=== PATIENT | male | born 1990 | race Caucasian/White ===

== ENCOUNTER 2019-02-23 12:10 | Emergency (ER) | payer OTHER ==
--- NOTE | 2019-02-23 13:12 | XRAY Report ---
Reason: Chest pain Procedure Date: 02/23/2019 Accession Number: [id number] / [id number] Procedure: XR - Chest 1 View X-Ray CPT Code: 06747 Final Report FULL RESULT: EXAM: CHEST RADIOGRAPHY EXAM DATE: 02/23/2019 12:49 PM. CLINICAL HISTORY: Chest pain. COMPARISON: None. TECHNIQUE: 1 view. FINDINGS: Lungs/Pleura: No focal opacities evident. No pleural effusion. No pneumothorax. Mediastinum: Within exam limitations, the cardiomediastinal contour is normal. Other: None. IMPRESSION: Normal single view chest. RADIA
[2019-02-23 13:16] LABS: BASOPHILS % (AUTO) 0.3 %; EOSINOPHILS % (AUTO) 0.3 %; HGB - HEMOGLOBIN 15.1 g/dL (14.0-18.0); LYMPHOCYTES # (AUTO) 0.4 10^3/uL (1.5-3.5); LYMPHOCYTES % (AUTO) 5.5 %; MEAN CORPUSCULAR HEMOGLOBIN 30.3 pg (27.0-31.0); MEAN CORPUSCULAR HGB CONC 33.5 g/dL (32.0-36.0); MEAN CORPUSCULAR VOLUME 90.4 fL (80.0-94.0); MEAN PLATELET VOLUME 9.7 fL (7.4-11.4); MONOCYTES # (AUTO) 0.6 10^3/uL (0.0-1.0); MONOCYTES % (AUTO) 8.5 %; NEUTROPHILS # (AUTO) 6.3 10^3/uL (1.5-6.6); PLT - PLATELET COUNT 206 10^3/uL (130-450); RED BLOOD COUNT 4.99 10^6/uL (4.70-6.10); RED CELL DISTRIBUTION WIDTH 12.7 % (12.0-15.0); WHITE BLOOD COUNT 7.4 x10^3/uL (4.8-10.8)
[2019-02-23 13:27] VITALS: BP 147/87
[2019-02-23 13:31] LABS: ALBUMIN/GLOBULIN RATIO 1.8 (1.0-2.2); BILIRUBIN,TOTAL 0.9 mg/dL (0.2-1.0); CALCIUM 9.4 mg/dL (8.5-10.3); CREATININE 0.8 mg/dL (0.6-1.2); TOTAL PROTEIN 7.8 g/dL (6.7-8.2)
--- NOTE | 2019-02-23 13:55 | ED Physician Documentation ---
History of Present Illness - Stated complaint Stated Complaint: CP/SOA - Chief complaint Chief Complaint: Cardiac - Additonal information Additional information: This is a 29-year-old male who denies past medical history presents with chest pain. Patient states that he feeling well until this morning at 6 AM he woke up with some chest pain which is moderate sharp pain in the center of his chest that radiates towards his left shoulder and is affected by position. He states that taking a deep breath or moving his chest causes some discomfort, but he denies actual shortness of breath. He has not been sick recently, no fever, no chest wall trauma, no lightheadedness or passing out. He denies any history of autoimmune disease or other medical conditions, he does not take medications. Review of Systems Constitutional: denies: Fever Cardiac: reports: Chest pain / pressure Respiratory: denies: Dyspnea GI: denies: Abdominal Pain, Vomiting Skin: denies: Rash Immunocompromised: denies: Immunocompromised PD PAST MEDICAL HISTORY - Past Medical History Past Medical History: No - Past Surgical History Past Surgical History: Yes - Present Medications Home Medications: Ambulatory Orders Medication Instructions Recorded Confirmed Colchicine 0.6 mg PO BID #60 tablet 02/23/19 Ibuprofen [Ibu] 600 mg PO TID #40 tablet 02/23/19 - Allergies Allergies/Adverse Reactions: Allergies Allergy/AdvReac Type Severity Reaction Status Date / Time No Known Drug Allergies Allergy Verified 02/23/19 12:40 - Social History Does the pt smoke?: No Smoking Status: Never smoker Does the pt drink ETOH?: Yes Does the pt have substance abuse?: No - Immunizations Immunizations are current?: Yes PD ED PE NORMAL - Vitals Vital signs reviewed: Yes - General General: Alert and oriented X 3, No acute distress - HEENT HEENT: PERRL - Neck Neck: Supple, no meningeal sign - Cardiac Cardiac: RRR, No murmur, No rub - Respiratory Respiratory: Clear bilaterally - Abdomen Abdomen: Soft, Non tender, Non distended - Derm Derm: Warm and dry - Extremities Extremities: No deformity - Neuro Neuro: Alert and oriented X 3, No motor deficit, No sensory deficit, Normal speech - Psych Psych: Normal mood, Normal affect Results - Vitals Vitals: Oxygen O2 Source Room air - EKG (time done) 12:35 Other comments: Other comments (Rate 85, rhythm sinus. There is diffuse St elevation and NV depression, suggestive of pericarditis.) - Labs Labs: Laboratory Tests 02/23/19 02/23/19 02/23/19 13:12 13:12 13:12 WBC 7.4 RBC 4.99 Hgb 15.1 Hct 45.1 MCV 90.4 MCH 30.3 MCHC 33.5 RDW 12.7 Plt Count 206 MPV 9.7 Neut # (Auto) 6.3 Lymph # (Auto) 0.4 L [place] # (Auto) 0.6 Eos # (Auto) 0.0 Baso # (Auto) 0.0 Absolute Nucleated RBC 0.00 Nucleated RBC % 0.0 Sodium 137 Potassium 4.4 Chloride 98 L Carbon Dioxide 26 Anion Gap 13.0 BUN 9 Creatinine 0.8 Estimated GFR (MDRD) 113 Glucose 110 H Calcium 9.4 Total Bilirubin 0.9 AST 30 ALT 35 Alkaline Phosphatase 52 Troponin I High Sens 2.9 C-Reactive Protein Total Protein 7.8 Albumin 5.0 Globulin 2.8 Albumin/Globulin Ratio 1.8 Lipase 21 L 02/23/19 13:12 WBC RBC Hgb Hct MCV MCH MCHC RDW Plt Count MPV Neut # (Auto) Lymph # (Auto) [place] # (Auto) Eos # (Auto) Baso # (Auto) Absolute Nucleated RBC Nucleated RBC % Sodium Potassium Chloride Carbon Dioxide Anion Gap BUN Creatinine Estimated GFR (MDRD) Glucose Calcium Total Bilirubin AST ALT Alkaline Phosphatase Troponin I High Sens C-Reactive Protein 1.0 Total Protein Albumin Globulin Albumin/Globulin Ratio Lipase - Rads (name of study) CXR Radiology: Other (No acute cardiopulmonary abnormality) Bedside ECho Radiology: Other (Grossly normal LVEF, no pericardial effusion.) PD MEDICAL DECISION MAKING - ED course Complexity details: considered differential (ACS, pericarditis, myocarditis, PE, PNA, PTX, MSK pain) ED course: Pt is well appearing, hypertensive on arrival. EKG shows diffuse ST elevation, NV depression, no ST depression, suggestive of pericarditis. XR is negative. Labs are unremarkable, and troponin is negative. No signs of pericarditis, and his history and negative troponin make ACS extremely unlikely. Pt appears to have pericarditis, his EKG and history are compatible with this. He is PERC negative, PE exceedingly unlikely. He is non-toxic appearing and on bedside POC echo he has no pericardial effusion, normal EF. He appears appropriate for outpatient treatment up at this time. CRP was drawn as a baseline, and I discussed treatment with ibuprofen and colchicine, as well as the need for close follow up and strict return precautions with any new or concerning symptoms. Pt agreed and was discharged home in good condition. Departure - Departure Disposition: 01 Home, Self Care Clinical Impression: Pericarditis Qualifiers: Pericarditis type: unspecified type Chronicity: acute Qualified Code(s): I30.9 - Acute pericarditis, unspecified Condition: Good Instructions: Pericarditis Follow-Up: Your,PCP [Other] Prescriptions: Colchicine 0.6 mg PO BID #60 tablet Ibuprofen [Ibu] 600 mg PO TID #40 tablet Comments: You have pericarditis or inflammation around the heart. I do not see signs of serious complications at this time. There was no fluid around the heart. Your high-sensitivity troponin was normal, indicating no involvement of the heart muscle at this time. Please start the ibuprofen and colchicine. As your pain improves you may taper down on the ibuprofen until you are no longer taking it. The colchicine is typically continued for 3 months. You should follow-up with your primary care provider in 1 week, oftentimes they will repeat labs and recheck how your heart is doing at that point. If you are having worsening symptoms such as severe pain which is not improving with the medications, difficulty breathing, passing out, or other concerning symptoms return to the emergency department immediately. Discharge Date/Time: 02/23/19 14:25
[2019-02-23] MEDS ORDERED: IBUPROFEN 800 MG TABLET PO STA (14:19)
[2019-02-23] MEDS ORDERED: COLCHICINE 0.6 MG TABLET PO STA (14:19)
== END 2019-02-23 14:25 | disposition home or self-care (01) ==
LOC: ED 12:10
DX: I30.9 Acute pericarditis, unspecified (principal)
CPT/HCPCS: 36415; 71045; 80053; 83690; 84484; 85025; 86140; 93005; 99284; A9270